=== PATIENT | female | born 1995 | race American Indian/Alaskan Native ===

== ENCOUNTER 2017-05-15 23:35 | Emergency (ER) | payer SELFPAY | END 2017-05-16 01:15 | disposition left against medical advice (07) | LOC: ED 23:35 | DX: R07.9 Chest pain, unspecified (principal); Z53.21 Procedure and treatment not carried out due to patient leaving prior to being seen by health care provider | CPT/HCPCS: 93005; 93010 ==

== ENCOUNTER 2021-05-30 18:00 | Emergency (ER) | payer MEDICAID ==
[2021-05-30] MEDS ORDERED: LORazepam 2 MG/ML VIAL IM PRN (20:18)
[2021-05-30] MEDS ORDERED: HALOPERIDOL LACTATE 5 MG/1 ML INJ IM PRN (20:18)
[2021-05-30] MEDS ORDERED: SODIUM CHLORIDE 0.9% 1000 ML 1,000 ML IV ONE (20:18)
[2021-05-30 20:42] LABS: Hematocrit 41.9 % (30.3-42.9); Hemoglobin 13.4 gm/dl (10.1-14.3); Mean Corpuscular HGB Conc 32 % (30-34); Mean Corpuscular Volume 83 fl (79-97); Platelet Count 282 K/mm3 (140-440); Red Blood Count 5.09 M/mm3 (3.65-5.03); Red Cell Distribution Width 14.6 % (13.2-15.2)
[2021-05-30 21:43] LABS: BUN/Creatinine Ratio 11; Blood Urea Nitrogen 10 mg/dL (7-17); Calcium 9.3 mg/dL (8.4-10.2); Hemolysis Index 3
[2021-05-30 22:20] LABS: Alanine Aminotransferase 23 units/L (7-56); Albumin 4.6 g/dL (3.9-5)
[2021-05-30 22:21] LABS: Bilirubin,Direct < 0.2 mg/dL (0-0.2)
[2021-05-30] MEDS ORDERED: LACTATED RINGERS 1,000 ML IV ONE (23:14)
[2021-05-30] MEDS ORDERED: KETOROLAC 30 MG/1 ML INJ IV ONE (23:43)
[2021-05-31] MEDS ORDERED: LACTATED RINGERS 1,000 ML IV ONE (01:43)
[2021-05-31 02:26] VITALS: BP 130/82
== END 2021-05-31 02:25 | disposition left against medical advice (07) ==
LOC: ED 18:00
DX: T50.991A Poisoning by other drugs, medicaments and biological substances, accidental (unintentional), initial encounter (principal); M79.672 Pain in left foot; E11.9 Type 2 diabetes mellitus without complications; Y92.89 Other specified places as the place of occurrence of the external cause
CPT/HCPCS: 36415; 73630; 80048; 80076; 82550; 83735; 84443; 84702; 85027; 93005; 93010; 96361; 96374; 99284; J1885; J7030; J7120; 80320; Q0162; G0480